=== PATIENT | male | born 1965 | race Hispanic/Latino ===

== ENCOUNTER 2019-04-14 05:34 | Emergency (ER) | payer OTHER ==
[2019-04-14] MEDS ORDERED: IBUPROFEN 400 MG TABLET ONE (06:46)
[2019-04-14 06:50] LABS: RAPID GROUP A STREP NEGATIVE (NEGATIVE)
== END 2019-04-14 07:49 | disposition home or self-care (01) ==
LOC: EDH 05:34
DX: J06.9 Acute upper respiratory infection, unspecified (principal); Z90.49 Acquired absence of other specified parts of digestive tract
CPT/HCPCS: 87804; 87880